=== PATIENT | male | born 1995 | race Caucasian/White ===

== ENCOUNTER 2017-01-23 12:46 | Emergency (ER) | payer MEDICAID ==
[~2017-01-23] VITALS: Ht 170.2 cm; Wt 66.0 kg
[2017-01-23 13:00] VITALS: Ht 170.2 cm; Wt 66.0 kg
[2017-01-23] MEDS ORDERED: ELIM TOP ×2 (13:30→14:11)
[2017-01-23] MEDS ORDERED: BEN25 PO ×2 (13:30→14:11)
--- NOTE | 2017-01-23 13:48 | ERD ---
ER Documentation Chief Complaint Date/Time DATE: 01/23/17 TIME: 13:44 Chief Complaint itchiness to the whole body; rash to the legs; noticed it 3 days ago HPI This is a 21-year-old male presenting to the emergency department for generalized body pruritus. Patient states his entire body is itching which started in bilateral legs. Patient states now the pruritus is all over his body. Patient states he lives with other family members and his lrrwdig-bt-[id number] who he lives with has similar symptoms. No rash noted. No new soap, food or medications. Notes shortness of breath, difficulty breathing, wheezing or chest pain. No difficulty swallowing or drooling. No fevers or chills. ROS All systems reviewed and are negative except as per history of present illness. Medications Home Meds Active Scripts Diphenhydramine Hcl* (Benadryl*) 25 Mg Cap, 25 MG PO Q6, #10 CAP Prov:ANJELICA PAULSON NP 01/23/17 Permethrin* (Elimite*) 5% Cr, 1 APPLIC TOP ONCE, #1 TUB Prov:ANJELICA PAULSON NP 01/23/17 PMhx/Soc Medical and Surgical Hx: pt denies Medical Hx, pt denies Surgical Hx Physical Exam Vitals Vital Signs Date Time Temp Pulse Resp B/P Pulse Ox O2 Delivery O2 Flow Rate FiO2 01/23/17 13:00 98.2 68 18 106/56 100 Physical Exam Const: No acute distress, alert Head: Atraumatic Eyes: Normal Conjunctiva ENT: Normal External Ears, Nose and Mouth. Neck: Full range of motion..~ No meningismus. Resp: Clear to auscultation bilaterally Cardio: Regular rate and rhythm, no murmurs Abd: Soft, non tender, non distended. Normal bowel sounds Skin: No petechiae or rashes Back: No midline or flank tenderness Ext: No cyanosis, or edema Neur: Awake and alert Psych: Normal Mood and Affect Procedures/MDM MDM: This is a 21-year-old male presenting to the emergency department for generalized body pruritus 3 days. Patient states his aolqjyo-ey-gxb who lives with him has similar symptoms. No rash or lesions identified. No fevers. Patient states he has tried tvhv-kdx-umefbpq hydrocortisone cream without relief of symptoms. No shortness of breath or difficulty breathing. No wheezing or chest pain. Oxygen saturation 100% on room air. Physical exam is overall unremarkable. Differential diagnosis includes but not limited to scabies, eczema, psoriasis, allergic reaction and contact dermatitis. Patient is appropriate for outpatient management will be given prescription for permethrin and Benadryl. Instructed patient to follow-up with primary care provider in the next 2-3 days for reassessment and additional management. Return to ED for any high fever, chest pain, difficulty breathing, shortness breath, wheezing, vomiting, diarrhea, abdominal pain or any new or worsening symptoms. Patient verbalizes understanding. All questions answered at discharge. Sudanese translation use during this encounter. Departure Diagnosis: Primary Impression: Generalized pruritus Condition: Stable Patient Instructions: Scabies Ref[facility] Usted se weber hecho un examen mdico de control que le indica que no est en rose condicin que requiera tratamiento urgente en el Departamento de Emergencia. Un estudio ms profundo y el tratamiento de hughes condicin pueden esperar sin ningn riesgo hasta que usted sea atendida/o en el consultorio de hughes mdico o rose cl deonna. Es responsabilidad suya arreglar rose rashad para el seguimiento del dami. MANEJO DE CONDICIONES NO URGENTES EN EL FUTURO 1) Si usted tiene un mdico de atencin primaria: Usted debera llamar a hughes mdico de atencin primaria antes de venir al departamento de emergencia. Despus de las horas de consultorio, hughes doctor o hughes asociado/a est disponible por telfono. El mdico o enfermero de darian en el servicio telefnico puede asesorarle por yao medio para atender el problema, o dami contrario se puede programar rose rashad. 2) Si usted no tiene un mdico de atencin primaria: Llame al mdico o clnica de referencia que aparece abajo ita las horas de consultorio para hacer rose rashad para que le vean. CLINICAS: [facility] [phone] [facility] [phone] [facility] [address] [address] [facility] [phone] [facility]. [facility] [phone] [facility] [phone] [facility]. [phone] [facility] () Usted se weber hecho un examen mdico de control que le indica que no est en rose condicin que requiera tratamiento urgente en el Departamento de Emergencia. Un estudio ms profundo y el tratamiento de hughes condicin pueden esperar sin ningn riesgo hasta que usted sea atendida/o en el consultorio de hughes mdico o rose cl deonna. Es responsabilidad suya arreglar rose rashad para el seguimiento del dami. MANEJO DE CONDICIONES NO URGENTES EN EL FUTURO 1) Si usted tiene un mdico de atencin primaria: Usted debera llamar a hughes mdico de atencin primaria antes de venir al departamento de emergencia. Despus de las horas de consultorio, hughes doctor o hughes asociado/a est disponible por telfono. El mdico o enfermero de darian en el servicio telefnico puede asesorarle por yao medio para atender el problema, o dami contrario se puede programar rose rashad. 2) Si usted no tiene un mdico de atencin primaria: Llame al mdico o condado institucions de referencia que aparece abajo ita las horas de consultorio para hacer rose rashad para que le vean. SI USTED NO PUEDE PAGAR PARA NAGA UN MEDICO puede ir a: [facility] [address] [place] [address] [facility] [address] [place] [address] [facility] [address] [place] [address] [facility] [address] [place], [place] [id number] Additional Instructions: Llame al doctor MAANA y judith rose RASHAD PARA DENTRO DE 2-3 BACK.Dgale a la secretaria que nosotros le instruimos hacer esta rashad.Avise o llame si hughes condicin se empeora antes de la rashad. Regresa aqui si peor o no mejor. ANJELICA PAULSON NP Jan 23, 2017 13:48
== END 2017-01-23 14:32 | disposition home or self-care (01) ==
LOC: FTE 12:46
DX: L29.9 Pruritus, unspecified (principal)
CPT/HCPCS: 99283